=== PATIENT | female | born 1980 | race Caucasian/White ===

== ENCOUNTER → 2016-11-05 | Outpatient (CLI) | payer SELFPAY ==
[2016-01-31 09:52] VITALS: BP 105/57
[~2016-11-05] MED LIST: CORTROSYN IM NR; CORTROSYN IM ONE
[2016-11-05 09:35] LABS: T4 (THYROXINE) 8.7 ug/dL (4.7-13.3); TSH (3RD GENERATION) 0.11 uIU/mL (0.358-3.74)
== END ==
LOC: LAB 08:13
PROVIDERS: ATTEND Internal Medicine
DX: E27.8 Other specified disorders of adrenal gland (principal); E89.0 Postprocedural hypothyroidism; C73 Malignant neoplasm of thyroid gland
CPT/HCPCS: 36415; 82533; 84436; 84443; 84479; 86800